=== PATIENT | female | born 1990 | race Caucasian/White ===

== ENCOUNTER 2018-02-03 09:19 | Inpatient (IN) | payer OTHER ==
[2018-02-03] MEDS ORDERED: Lactated Ringer's 1,000 ML IV SCH (09:45)
--- NOTE | 2018-02-03 10:11 | OBADHP ---
Datetime: 02/03/2018 10:06 Admit Comment, IP Provider: c/o ctx q 5-10 min 05/29, denies lof, vb, +FM. 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 shx of abnomra pap, fibroids, ovairan cyst sti PMH Denies PSH: denies MEDS :PNV NKDA SHX: negaitve Etoh/tobacc/durugs A/P in active labor with polyydramnios admit to l+D npo, ivf admission lbas cont toco and efm analgesia pitocin augmentation Pelvic Type - PN: Adequate Extremities - PN: Normal Abdomen - PN: Normal Back - PN: Normal Breast - PN: Normal Lungs - PN: Normal Heart - PN: Normal Thyroid - PN: Normal Neurologic - PN: Normal HEENT - PN: Normal General - PN: Normal Presentation-Admit: Vertex FHR - Baseline A Provider: 150 Membranes, Provider: Intact Contraction Comments Provider: q 10 min Gestation - Est Wks by US: 40.0 IP Hx Assessment: The History has been Reviewed and is Current Vital Signs Provider: Reviewed IP Chief Complaint: Uterine contractions NICHD Variability Prov Fetus A: Moderate 6-25bpm FHR Category Provider Fetus A: Category I Dilatation, Provider: 4 Effacement, Provider: 50 Station, Provider: -2 Genitourinary Exam: Normal DTRs - PN: Normal EGA AdmitDate IP: 40.0 IP Adm Impression: Term, intrauterine IP Admit Plan: Admit to unit
[2018-02-03] MEDS ORDERED: Oxytocin 30 UNIT 30 UNITS/500 ML BAG IV SCH (10:15)
[2018-02-03 10:42] LABS: BASO % 0.4 % (0.0-2.0); EOS # 0.1 K/uL (0.0-0.7); EOS % 1.2 % (0.0-4.0); HEMOGLOBIN 14.3 g/dL (11.0-16.0); LYMPH % 18.5 % (20.0-40.0); MEAN CELL VOLUME 96.7 fL (81.0-99.0); MEAN CORPUSCULAR HEMOGLOBIN 33.1 pg (27.0-31.0); MEAN CORPUSCULAR HGB CONC 34.3 g/dL (33.0-37.0); MEAN PLATELET VOLUME 10.3 fL (7.2-11.7); MONO # 0.8 K/uL (0.0-0.8); NEUT # 7.8 K/uL (1.8-7.0); NEUT % 72.9 % (50.0-75.0); NRBC % 0.1 % (0.0-2.0); RBC 4.33 Mil/uL (3.80-5.20); RED CELL DISTRIBUTION WIDTH 14.2 % (11.5-14.5); WHITE BLOOD COUNT 10.8 K/uL (4.8-10.8)
[2018-02-03] MEDS ORDERED: Oxytocin 30 UNIT 30 UNITS/500 ML BAG IV ONE ×2 (10:47→22:07)
--- NOTE | 2018-02-03 14:52 | OBPN ---
Datetime: 02/03/2018 14:47 IP Progress Impression: Normal progression of labor IP Progress Plan: Continue present management Membranes, Provider: Intact Contraction Comments Provider: q 3 min FHR - Baseline A Provider: 125 Presentation-Admit: Vertex IP Progress Note Comment: pt seen and examined c/o left sided intermitten rios, densi vb, lof, +FM VSS EFM: Cat I TOCO: q 3 min Pitocin 9mu/min A/P in labor -cont current managment -pain managment prn Vital Signs Provider: Reviewed; Within Normal Limits NICHD Variability Prov Fetus A: Moderate 6-25bpm Dilatation, Provider: 4 Effacement, Provider: 60 Station, Provider: -2 Datetime: 02/03/2018 10:06 Gestation - Est Wks by US: 40.0 FHR Category Provider Fetus A: Category I
--- NOTE | 2018-02-03 20:13 | OBPN ---
Datetime: 02/03/2018 20:09 IP Progress Impression: Normal progression of labor IP Procedures: Artificial ROM IP Progress Plan: Continue present management Membranes, Provider: Ruptured Amniotic Fluid Color, Provider: Clear FHR - Baseline A Provider: 150 Presentation-Admit: Vertex IP Progress Note Comment: pt seen and examined c/o pressure s/p AROM reports lo,f, +FM VSS EMF: Cat I TOCO: q 2-3 min MEDS: Pit 17mu/min A/P in active labor -cont current managment -pain managmetn prn Vital Signs Provider: Reviewed; Within Normal Limits FHR Category Provider Fetus A: Category III NICHD Variability Prov Fetus A: Moderate 6-25bpm Dilatation, Provider: 6 Effacement, Provider: 70 Station, Provider: -2 NICHD Decel Fetus A IP Provider: None
[2018-02-03] MEDS ORDERED: Bupivacaine HCl/FentaNYL Cit 100 ML EPI ONE (23:20)
[2018-02-03] MEDS ORDERED: Bupivacaine HCl 0.25% PF (10 ml) Inj ONE (23:20)
--- NOTE | 2018-02-04 01:02 | OBPN ---
Datetime: 02/04/2018 00:58 IP Progress Impression: Normal progression of labor IP Progress Plan: Continue present management Membranes, Provider: Ruptured Amniotic Fluid Color, Provider: Clear Contraction Comments Provider: q 2- 3m FHR - Baseline A Provider: 150 Gestation - Est Wks by US: 40.1 Presentation-Admit: Vertex IP Progress Note Comment: pt sen an deamied c/o pain s/ p epdiural VSS EFM: Cat I TOCO: q 2-3 min Pitocn 20 mu/min VE: 90/0 A/P @ 40+ wks in active labor -cont current magment -pain amnent prn Vital Signs Provider: Reviewed; Within Normal Limits NICHD Variability Prov Fetus A: Marked >25bpm Dilatation, Provider: 9 Effacement, Provider: 90 Station, Provider: 0
[2018-02-04] MEDS ORDERED: Lidocaine 2% Inj (20ml) ONE (07:10)
[2018-02-04] MEDS ORDERED: Oxycodone/Acetaminophen 5/325 mg Tab PO PRN ×2 (07:39)
[2018-02-04] MEDS ORDERED: Benzocaine/Menthol 20%-0.5% Topical Spray (60 ml) TOP PRN (07:39)
--- NOTE | 2018-02-04 07:45 | OBDS ---
MATERNAL INFORMATION Provider Comments: pt was fully dilated and pushing, aturmtaic, spontanoue delivery of head in MIKAELA p osition. atruamtic, spontanoeus dleiveyr of anteiror followed b posteiro shouler followed by dleivery of the body. both oral and nasal passages of the baby were bulb suctioned. umbical cord was clamped adn cut. baby was handed to mother on abdomen with rn assistnace. cord blood and cord gases collected adn sent x 2. Spontaeous dlieveyr of intact placenta with membranes. Funuds firm. Goo dhemostiaiss, second degree perineal lacerationed notd and repaired iwth 2-0 and 3-[address]. No cmplicatoins live female infant agpars 9,9 weigt of 7lb 2 ounces ebl 400ml LABOR SUMMARY EDC: 02/03/2018 00:00 LABOR INFORMATION Group B Beta Strep: Negative MEMBRANES Membranes Rupture Method: Artificial Rupture of Membranes: 02/03/2018 15:20 Length of Rupture (hrs): 15.95 Amniotic Fluid Color: Clear Amniotic Fluid Amount: Moderate Amniotic Fluid Odor: Normal BABY A INFORMATION Infant Delivery Date/Time: 02/04/2018 07:17 Born in Route : No : N/A Forceps: N/A Vacuum Extraction: N/A Shoulder Dystocia : No SHOULDER DYSTOCIA BABY A Infant Delivery Date/Time: 02/04/2018 07:17 INFANT INFORMATION BABY A Gestational Age at Delivery: 40.1 Gestational Status: Term Outcome : Liveborn Condition : Stable Infant Sex: Female IDENTIFICATION/MEDS BABY A ID Band Number: [id number] Sensor Number: [id number] WEIGHT/LENGTH BABY A Birthweight (gms): 3240 Weight (lb): 7 Infant Weight (oz): 2 Infant Length Inches: 19.25 Infant Length cms: 48.9
[2018-02-04] MEDS: Multiple Vitamins Tab PO SCH (09:53)
--- NOTE | 2018-02-05 06:34 | OBPPN ---
Datetime: 02/05/2018 06:33 PP Pain Prov: Within normal limits PP Nausea Prov: Denies PP Flatus Prov: Yes PP BM Prov: No PP Breasts Prov: Normal PP Heart Prov: Normal PP Lungs Prov: Normal PP Abdomen/Uterus Prov: Normal PP Lochia Prov: Normal PP Vulva/Perineum Prov: Normal PP CVA Tenderness Prov: Normal PP Extremities Prov: Normal PP C/S Incision Prov: Not Applicable PP Progress Prov: Normal PP Impression Prov: Normal progression PP Plan Prov: Continue present management PP Progress Note Prov: pt seen and examiend adn reports pain is contrllled. pt denies any headaches, blury visoin, ruq/epigastric pain. Pt is breast feeding and deines any fevers, chills, nause, vomiti ng, cp, sob VS see above GEN: NAD, AA Ox 3 RESP: CTAB/l CVS: RRR< +S1/S2 ABD: Soft, Appropriatly TTP over incsion ,no guarding no rebound tenderness, no rigidty, +BS No uterien tendneres, fundus firm, below leve of umbilucs VE; Minimal lochia non fouls semlling A/P s/p PPD #1 doing well -f/u am labs -advance diet as tolerated -encourge ambuatin out of bed, breast feeding -bowel regimen Vital Signs Provider PP: Reviewed
[2018-02-05] MEDS ORDERED: Magnesium Hydroxide Susp 30 ml UD PO ONE ×2 (08:00→10:00)
[2018-02-05 08:09] LABS: BASO # 0.1 K/uL (0.0-0.2); BASO % 0.6 % (0.0-2.0); EOS # 0.1 K/uL (0.0-0.7); EOS % 0.5 % (0.0-4.0); HEMOGLOBIN 12.3 g/dL (11.0-16.0); LYMPH # 2.5 K/uL (1.0-4.3); LYMPH % 13.2 % (20.0-40.0); MEAN CELL VOLUME 97.2 fL (81.0-99.0); MEAN CORPUSCULAR HEMOGLOBIN 33.3 pg (27.0-31.0); MEAN CORPUSCULAR HGB CONC 34.2 g/dL (33.0-37.0); MEAN PLATELET VOLUME 9.7 fL (7.2-11.7); MONO % 5.5 % (0.0-10.0); NEUT % 80.2 % (50.0-75.0); RBC 3.69 Mil/uL (3.80-5.20); RED CELL DISTRIBUTION WIDTH 13.9 % (11.5-14.5)
[2018-02-05 08:11] LABS: WHITE BLOOD COUNT 18.7 K/uL (4.8-10.8)
[2018-02-05] MEDS: Multiple Vitamins Tab PO SCH (09:36)
[2018-02-06 09:10] LABS: BASO # 0.1 K/uL (0.0-0.2); BASO % 0.4 % (0.0-2.0); EOS # 0.3 K/uL (0.0-0.7); EOS % 2.5 % (0.0-4.0); HEMOGLOBIN 13.3 g/dL (11.0-16.0); LYMPH % 15.2 % (20.0-40.0); MEAN CELL VOLUME 98.1 fL (81.0-99.0); MEAN CORPUSCULAR HEMOGLOBIN 32.6 pg (27.0-31.0); MEAN CORPUSCULAR HGB CONC 33.2 g/dL (33.0-37.0); MEAN PLATELET VOLUME 9.7 fL (7.2-11.7); MONO # 0.8 K/uL (0.0-0.8); MONO % 5.8 % (0.0-10.0); NEUT % 76.1 % (50.0-75.0); RBC 4.09 Mil/uL (3.80-5.20); RED CELL DISTRIBUTION WIDTH 14.1 % (11.5-14.5); WHITE BLOOD COUNT 13.1 K/uL (4.8-10.8)
[2018-02-06] MEDS ORDERED: Measles, Mumps, and Rubella 0.5 ML VIAL SC ONE ×2 (10:00→15:00)
[2018-02-06] MEDS: Multiple Vitamins Tab PO SCH (10:15)
--- NOTE | 2018-02-06 16:35 | OBPPN ---
Datetime: 02/06/2018 16:32 PP Pain Prov: Within normal limits PP Nausea Prov: Denies PP Flatus Prov: Yes PP BM Prov: No PP Breasts Prov: Normal PP Heart Prov: Normal PP Lungs Prov: Normal PP Abdomen/Uterus Prov: Normal PP Lochia Prov: Normal PP Vulva/Perineum Prov: Normal PP CVA Tenderness Prov: Normal PP Extremities Prov: Normal PP C/S Incision Prov: Not Applicable PP Progress Prov: Normal PP Impression Prov: Normal progression PP Plan Prov: Continue present management PP Progress Note Prov: pt seen and examiend adn reports pain is contrllled. pt denies any headaches, blury visoin, ruq/epigastric pain. Pt is breast feeding and deines any fevers, chills, nause, vomiti ng, cp, sob VS see above GEN: NAD, AA Ox 3 RESP: CTAB/l CVS: RRR< +S1/S2 ABD: Soft, Appropriatly TTP over incsion ,no guarding no rebound tenderness, no rigidty, +BS No uterien tendneres, fundus firm, below leve of umbilucs VE; Minimal lochia non fouls semlling A/P s/p PPD #2 doing well, stable for dc dc home rto 6 weke precaiutn given IP PP Procedures: None Vital Signs Provider PP: Reviewed; Within Normal Limits
--- NOTE | 2018-02-06 16:35 | OBDCSUM ---
Datetime: 02/06/2018 15:36 Discharged to, Provider: Home Follow up at, Provider: Dr Corby Mendosa Disch Instr Activity: Normal activity; May Shower Disch Instr Diet: Regular Discharge Diet restrict Prov: none Discharge Instructions, Provider: Routine instructions given Discharge Diagnosis, Provider: Term Delivered Discharge Time: 02/06/2018 15:36 Follow up in weeks, Provider: 03/19/18 Disch Referrals: None Contraception discussed, Prov: Yes Disch Activity Restrictions: No exercising; No lifting; No sexual activity; Nothing in vagina - Inte rcourse, tampons, douche Discharge Comment, Provider: precaution given Contraception after Delivery: Not Planning to Use
[2018-02-06 16:39] VITALS: RESP 20; O2SAT 99
[2018-02-06 23:07] VITALS: BP 102/65; PULSE 77; TEMP 97
== END 2018-02-06 17:15 | disposition home or self-care (01) | DRG 775 ==
LOC: C.EROB 09:19 → C.4D 09:53 → C.4M 02-04 09:11
PROVIDERS: ADMIT Obstetrics & Gynecology; ATTEND Obstetrics & Gynecology
PROC: 10907ZC Drainage of Amniotic Fluid, Therapeutic from Products of Conception, Via Natural or Artificial Opening (ICD-10-PCS; 2018-02-03)
PROC: 10E0XZZ Delivery of Products of Conception, External Approach (ICD-10-PCS; principal; 2018-02-04)
PROC: 0KQM0ZZ Repair Perineum Muscle, Open Approach (ICD-10-PCS; 2018-02-04)
DX: O40.3XX0 Polyhydramnios, third trimester, not applicable or unspecified (principal); O70.1 Second degree perineal laceration during delivery; Z3A.40 40 weeks gestation of pregnancy; Z37.0 Single live birth